=== PATIENT | male | born 1975 | race Caucasian/White ===

== ENCOUNTER 2017-08-07 19:35 | Emergency (ER) | payer OTHER ==
[~2017-08-07] VITALS: Ht 185.4 cm; Wt 99.8 kg
[2017-08-07 19:59] VITALS: BP 118/78
== END 2017-08-07 20:08 | disposition home or self-care (01) ==
LOC: ER 19:35
DX: R50.9 Fever, unspecified (principal); J03.00 Acute streptococcal tonsillitis, unspecified
CPT/HCPCS: 99282